=== PATIENT | male | born 1940 | race Caucasian/White ===

== ENCOUNTER 2016-11-22 09:51 | Emergency (ER) | payer MEDICARE, BC ==
[2016-11-22] MEDS ORDERED: MECLIZINE 12.5 MG TABLET PO STA (12:12)
[2016-11-22] MEDS ORDERED: ONDANSETRON ODT 4 MG TABLET TL STA (12:13)
[2016-11-22] MEDS ORDERED: MECLIZINE 12.5 MG TABLET PO ONE (12:25)
[2016-11-22] MEDS ORDERED: ONDANSETRON ODT 4 MG TABLET ONE (12:25)
== END 2016-11-22 13:25 | disposition home or self-care (01) ==
DX: H81.399 Other peripheral vertigo, unspecified ear (principal); I10 Essential (primary) hypertension; E11.9 Type 2 diabetes mellitus without complications; Z79.84 Long term (current) use of oral hypoglycemic drugs; Z86.73 Personal history of transient ischemic attack (TIA), and cerebral infarction without residual deficits
CPT/HCPCS: 36415; 80053; 81003; 83690; 85025; 93005; 93010; 99283; 99284; A9270; Q0162

== ENCOUNTER 2020-07-12 00:34 | Emergency (ER) | payer MEDICARE, BC ==
--- NOTE | 2020-07-12 00:42 | ED Physician Documentation ---
History of Present Illness - Stated complaint Stated Complaint: FO IN THROAT - History obtained from History obtained from: Patient - Additonal information Additional information: the patient is a 80 y/o m c/o of food stuck in throat. no other complaints. Patient reports earlier today he ate a large piece of steak and since then has been having a feeling of foreign body in his throat. Denies any other complaints denies chest pain or fevers or shortness of breath. Review of Systems Constitutional: reports: Reviewed and negative Eyes: reports: Reviewed and negative Ears: reports: Reviewed and negative Nose: reports: Reviewed and negative Throat: reports: Other (food stuck in throat.) Cardiac: reports: Reviewed and negative Respiratory: reports: Reviewed and negative GI: reports: Reviewed and negative : reports: Reviewed and negative Skin: reports: Reviewed and negative Musculoskeletal: reports: Reviewed and negative Neurologic: reports: Reviewed and negative Psychiatric: reports: Reviewed and negative Endocrine: reports: Reviewed and negative Immunocompromised: reports: Reviewed and negative PD PAST MEDICAL HISTORY - Past Medical History Cardiovascular: Hypertension Endocrine/Autoimmune: Type 2 diabetes - Past Surgical History Past Surgical History: Yes Ortho: Knee replacement - Present Medications Home Medications: Ambulatory Orders Medication Instructions Recorded Confirmed Meclizine [Antivert] 25 mg PO Q6H PRN #20 tablet 11/22/16 Metformin HCl 11/22/16 Promethazine [Phenergan] 25 - 50 mg PO Q6H PRN #10 tab 11/22/16 lisinopriL [Lisinopril] 11/22/16 - Allergies Allergies/Adverse Reactions: Allergies Allergy/AdvReac Type Severity Reaction Status Date / Time No Known Drug Allergies Allergy Verified 07/12/20 00:45 - Social History Does the pt smoke?: No Smoking Status: Never smoker PD ED PE NORMAL - Vitals Vital signs reviewed: Yes - General General: Alert and oriented X 3, No acute distress - HEENT HEENT: Atraumatic, PERRL, EOMI, Ears normal, Moist mucous membranes, Pharynx benign, Dentition benign, Other (upon entering the room patient immediately vomited large piece of steak, symptoms resolved, requesting to go home.) - Neck Neck: Supple, no meningeal sign - Cardiac Cardiac: RRR, No murmur - Respiratory Respiratory: Clear bilaterally - Abdomen Abdomen: Normal bowel sounds, Soft, Non tender, Non distended - Derm Derm: Warm and dry - Extremities Extremities: No deformity - Neuro Neuro: Alert and oriented X 3 - Psych Psych: Normal mood, Normal affect Results - Vitals Vitals: Vital Signs - 24 hr 07/12/20 07/12/20 07/12/20 00:42 00:46 00:52 Temperature 36.6 C Heart Rate 110 H Respiratory 17 17 19 Rate Blood Pressure 171/107 H O2 Saturation 96 Oxygen O2 Source Room air PD MEDICAL DECISION MAKING - ED course ED course: 80-year-old month male ate a large piece of steak earlier today has had a foreign body sensation. When I went to examine the patient soon as I walked in the room he immediately vomited a large piece of steak reports he feels better and wants to go home denies any other complaints. Departure - Departure Disposition: 01 Home, Self Care Clinical Impression: Food impaction of esophagus Qualifiers: Encounter type: initial encounter Qualified Code(s): T18.128A - Food in esophagus causing other injury, initial encounter Condition: Stable Instructions: ED Foreign Body Esophageal Rslv Follow-Up: Haroldo Bonner MD [Primary Care Provider] - 07/12/20 Comments: follow up with your physician tomorrow. take over the counter prilosec or pepcid as needed. liquid diet for the next 48 hours. Discharge Date/Time: 07/12/20 00:56
[2020-07-12 00:45] VITALS: BP 171/107
== END 2020-07-12 00:56 | disposition home or self-care (01) ==
LOC: ED 00:34
DX: T18.128A Food in esophagus causing other injury, initial encounter (principal); X58.XXXA Exposure to other specified factors, initial encounter; Y93.89 Activity, other specified; I10 Essential (primary) hypertension; E11.9 Type 2 diabetes mellitus without complications; Z79.84 Long term (current) use of oral hypoglycemic drugs
CPT/HCPCS: 99281; 99282

== ENCOUNTER 2023-11-23 10:49 | Outpatient (CLI) | payer MEDICARE, BC | END 2023-11-23 23:59 | disposition short-term general hospital (02) | LOC: EMS 10:49 | DX: R11.2 Nausea with vomiting, unspecified (principal); R19.7 Diarrhea, unspecified; R14.0 Abdominal distension (gaseous); R10.84 Generalized abdominal pain; R10.817 Generalized abdominal tenderness | CPT/HCPCS: A0425; A0429; A0888 ==